=== PATIENT | male | born 1970 | race African-American/Black ===

== ENCOUNTER 2024-06-28 03:57 | Emergency (ER) | payer OTHER ==
[2024-06-28 05:03] LABS: #Basophils 0.04 10x3/uL (0.0-0.2); %Basophils 0.8 % (0.0-1.0); %Eosinophils 4.5 % (0.0-10.0); %Monocytes 9.3 % (0.0-10.0); Hematocrit 48.3 % (42.0-52.0); Hemoglobin 17.2 g/dL (14.0-18.0); Mean Corpuscular HGB CONC 35.6 g/dL (32.0-36.0); Mean Corpuscular Hemoglobin 32.2 pg (27.0-31.0); Mean Corpuscular Volume 90.4 fL (78.0-98.0); Platelet Count 301 10x3/uL (130-400); RBC Distribution Width 13.4 % (11.5-14.5); Red Blood Cell (RBC) Count 5.34 mill/uL (4.70-6.10)
[2024-06-28 05:14] LABS: ALT (SGPT) 11 U/L (8-55); AST (SGOT) 15 U/L (5-34); Alkaline Phosphatase 50 U/L (40-110); Anion Gap 16 mmol/L (10-20); BUN (Urea Nitrogen) 12 mg/dL (8.4-25.7); Bilirubin, Total 0.4 mg/dL (0.2-1.2); Calc. Creatinine Clearance 0 mL/min (70-130); Calcium 9.1 mg/dL (7.8-10.44); Carbon Dioxide 21 mmol/L (22-29); Chloride 108 mmol/L (98-107); Estimated GFR 70; Globulin 3.3 g/dL (2.4-3.5); Glucose 89 mg/dL (70-105); Potassium 4.4 mmol/L (3.5-5.1); Protein, Total 7.3 g/dL (6.0-8.3); Sodium 141 mmol/L (136-145)
[2024-06-28 05:33] LABS: Troponin I Less than 0.010 ng/mL (< 0.028)
[2024-06-28] MEDS ORDERED: Ipratropium/Albuterol 3 ML NEB ONE (05:34)
== END 2024-06-28 07:35 | disposition home or self-care (01) ==
LOC: ERS 03:57
DX: R06.00 Dyspnea, unspecified (principal); F17.210 Nicotine dependence, cigarettes, uncomplicated
CPT/HCPCS: 71045; 71275; 80053; 83880; 84484; 85025; 85379; 93005; J7620

== ENCOUNTER 2024-07-28 13:43 | Emergency (ER) | payer OTHER ==
[2024-07-28] MEDS ORDERED: predniSONE 20 MG TAB ONE (14:57)
[2024-07-28] MEDS ORDERED: Ipratropium/Albuterol 3 ML NEB ONE (14:57)
[2024-07-28] MEDS ORDERED: guaiFENesin ER 600 MG TAB ONE (15:09)
[2024-07-28] MEDS ORDERED: guaiFENesin/DM ER PO SCH (15:15)
== END 2024-07-28 15:36 | disposition home or self-care (01) ==
LOC: ERS 13:43
DX: R05.9 Cough, unspecified (principal); R06.2 Wheezing; F17.210 Nicotine dependence, cigarettes, uncomplicated
CPT/HCPCS: 71046; 87428; J7512; J7620